=== PATIENT | female | born 1985 ===

== ENCOUNTER 2023-05-14 13:40 | Emergency (ER) | payer OTHER ==
[2023-05-14 14:59] LABS: APPEARANCE,URINE CLEAR; BILIRUBIN,URINE NEGATIVE (NEGATIVE); COLOR,URINE YELLOW; GLUCOSE,URINE NEGATIVE (NEGATIVE); KETONES,URINE NEGATIVE (NEGATIVE); LEUKOCYTE ESTERASE,URINE NEGATIVE (NEGATIVE); NITRITE,URINE NEGATIVE (NEGATIVE); OCCULT BLOOD,URINE NEGATIVE (NEGATIVE); PH,URINE 6.5 (5.0-8.0); PROTEIN,URINE NEGATIVE (NEGATIVE); UROBILINOGEN,URINE 0.2 EU/dL (<2.0)
== END 2023-05-14 15:50 | disposition home or self-care (01) ==
LOC: MW.ED 13:40
DX: O99.891 Other specified diseases and conditions complicating pregnancy (principal); R30.0 Dysuria; Z3A.00 Weeks of gestation of pregnancy not specified
CPT/HCPCS: 81003; 99283

== ENCOUNTER 2023-10-31 16:00 | Inpatient (IN) | payer BC, OTHER ==
[2023-10-31] MEDS ORDERED: Sodium Chloride 0.9% 2.5 ML Syringe FLUSH PRN ×2 (16:13→18:49)
[2023-10-31] MEDS ORDERED: Misoprostol 200 MCG Tab RECTAL PRN (16:13)
[2023-10-31] MEDS ORDERED: ceFAZolin 1 GM in Sodium Chloride 0.9% 50 ML IV ONE (16:13)
[2023-10-31] MEDS ORDERED: Citric Acid/Sodium Citrate Solution 30 ML Cup PO ONE (16:13)
[2023-10-31] MEDS ORDERED: Sodium Chloride 0.9% 10 ML Syringe FLUSH PRN ×2 (16:13→18:49)
[2023-10-31] MEDS ORDERED: Sodium Chloride 0.9% 20 ML SDV IV PRN (16:13)
[2023-10-31] MEDS ORDERED: Oxytocin/0.9 % Sodium Chloride 30 UNIT/500 ML BAG IV SCH (16:15)
[2023-10-31] MEDS ORDERED: fentaNYL 100 MCG/2 ML SDV ONE (16:19)
[2023-10-31] MEDS ORDERED: Morphine PF 10 MG/10 ML SDV ONE (16:19)
[2023-10-31] MEDS ORDERED: Oxytocin 10 Units/1 ML SDV ONE (16:23)
[2023-10-31] MEDS ORDERED: Tranexamic Acid 1,000 MG/10 ML Vial ONE (16:23)
[2023-10-31] MEDS ORDERED: Ondansetron 4 MG/2 ML SDV ONE ×2 (16:23→16:58)
[2023-10-31] MEDS ORDERED: Dexamethasone 4 MG/ML 5 ML MDV ONE (16:23)
[2023-10-31] MEDS ORDERED: Ropivacaine 0.5% 5 MG/ML 30 ML SDV ONE (16:23)
[2023-10-31] MEDS ORDERED: Phenylephrine HCl In 0.9% NaCl 1 MG/10 ML Syringe ONE ×3 (16:23→17:23)
[2023-10-31] MEDS ORDERED: ceFAZolin 2 GM Vial ONE (16:24)
[2023-10-31] MEDS ORDERED: dexmedeTOMIDine HCl 200 MCG/2 ML SDV ONE (16:25)
[2023-10-31] MEDS ORDERED: Calcium Chloride 10% 1 GM/10 ML Syringe ONE (16:28)
[2023-10-31] MEDS ORDERED: droPERidol 5 MG/2 ML SDV ONE (16:32)
[2023-10-31 16:38] LABS: HEMATOCRIT 33.4 % (37.0-47.0); HEMOGLOBIN 11.4 g/dL (12.0-16.0); MEAN CORPUSCULAR HEMOGLOBIN 30.3 pg (28.0-32.0); MEAN CORPUSCULAR HGB CONC 34.1 g/dL (32.0-36.0); MEAN CORPUSCULAR VOLUME 88.8 fL (83.0-99.0); PLATELET COUNT,PLT 260 K/uL (150-400); RED BLOOD CELL COUNT 3.76 M/uL (4.10-5.30); WHITE BLOOD CELL COUNT,WBC 13.69 K/uL (3.9-11.3)
[2023-10-31] MEDS ORDERED: Azithromycin 500 MG Vial ONE (16:52)
[2023-10-31] MEDS ORDERED: HYDROmorphone 1 MG/ML Syringe IVPUSH PRN (18:12)
[2023-10-31] MEDS ORDERED: ePHEDrine 50 MG/ML SDV IVPUSH PRN (18:12)
[2023-10-31] MEDS ORDERED: Albuterol 0.083% 2.5 MG/3 ML Neb Soln NEB PRN (18:12)
[2023-10-31] MEDS ORDERED: fentaNYL 50 MCG/ML SDV IVPUSH PRN ×2 (18:12→18:18)
[2023-10-31] MEDS ORDERED: Acetaminophen/oxyCODONE 325-5 MG Tab PO PRN (18:12)
[2023-10-31] MEDS ORDERED: Metoclopramide 10 MG/2 ML SDV IVPUSH PRN (18:12)
[2023-10-31] MEDS ORDERED: droPERidol 5 MG/2 ML SDV IVPUSH PRN (18:12)
[2023-10-31] MEDS ORDERED: diphenhydrAMINE 50 MG/ML SDV IVPUSH PRN (18:12)
[2023-10-31] MEDS ORDERED: Naloxone 0.4 MG/ML SDV IVPUSH PRN (18:12)
[2023-10-31] MEDS ORDERED: fentaNYL 100 MCG/2 ML SDV IVPUSH PRN (18:12)
[2023-10-31] MEDS ORDERED: Ondansetron 4 MG/2 ML SDV IVPUSH PRN ×2 (18:12)
[2023-10-31] MEDS ORDERED: Morphine 2 MG/ML SYRINGE IVPUSH PRN (18:12)
[2023-10-31] MEDS ORDERED: Measles, Mumps & Rubella Vaccine 0.5 ML SDV SUBCUT ONE (18:49)
[2023-10-31] MEDS: Lactated Ringers 1,000 ML IV SCH (19:33)
[2023-10-31] MEDS: Ketorolac 30 MG/ML SDV IVPUSH SCH (19:34)
[2023-10-31] MEDS: Acetaminophen 1,000 MG in Premix Bag 1 BAG IV SCH (19:46)
[2023-10-31] MEDS: Docusate Sodium 100 MG Cap PO SCH (22:52)
[2023-11-01 06:17] LABS: BASOPHILS ABSOLUTE AUTO 0.03 K/uL (0.00-0.20); BASOPHILS PERCENT AUTO 0.1 % (0.0-1.0); EOSINOPHILS ABSOLUTE AUTO 0.01 K/uL (0.00-0.45); HEMATOCRIT 30.9 % (37.0-47.0); HEMOGLOBIN 10.4 g/dL (12.0-16.0); IMMATURE GRAN ABSOLUTE AUTO 0.42 K/uL (0.00-0.05); IMMATURE GRAN PERCENT AUTO 1.9 % (0.0-0.4); LYMPHOCYTES PERCENT AUTO 8.5 % (24.0-44.0); MEAN CORPUSCULAR HEMOGLOBIN 30.7 pg (28.0-32.0); MEAN CORPUSCULAR HGB CONC 33.7 g/dL (32.0-36.0); MEAN CORPUSCULAR VOLUME 91.2 fL (83.0-99.0); MEAN PLATELET VOLUME 9.7 fL (9.4-12.3); MONOCYTES ABSOLUTE AUTO 1.21 K/uL (0.00-0.80); MONOCYTES PERCENT AUTO 5.4 % (0.0-8.0); NEUTROPHILS ABSOLUTE AUTO 18.72 K/uL (1.80-7.70); NEUTROPHILS PERCENT AUTO 84.1 % (41.0-71.0); PLATELET COUNT,PLT 254 K/uL (150-400); RED BLOOD CELL COUNT 3.39 M/uL (4.10-5.30); WHITE BLOOD CELL COUNT,WBC 22.29 K/uL (3.9-11.3)
[2023-11-01] MEDS: Ibuprofen 800 MG Tab PO ONE (21:08)
[2023-11-02] MEDS: Acetaminophen 500 MG Tab PO SCH (01:55)
[2023-11-02] MEDS: Ibuprofen 800 MG Tab PO SCH (04:15)
[2023-11-03] MEDS: Ibuprofen 800 MG Tab PO PRN (21:16)
[2023-11-03] MEDS: Acetaminophen 500 MG Tab PO PRN (22:59)
== END 2023-11-03 23:40 | disposition home or self-care (01) | DRG 540 ==
LOC: MW.OBCHECK 16:00 → MW.OB 16:01 → MW.OBCHECK 16:12 → OBSVTOIN 16:13 → MW.OB 20:14
PROVIDERS: ADMIT Obstetrics & Gynecology; ATTEND Obstetrics & Gynecology Obstetrics
PROC: 10D00Z1 Extraction of Products of Conception, Low, Open Approach (ICD-10-PCS; principal; 2023-10-31 16:45)
DX: O44.13 Complete placenta previa with hemorrhage, third trimester (principal); Z3A.37 37 weeks gestation of pregnancy; Z37.0 Single live birth; O62.1 Secondary uterine inertia
CPT/HCPCS: 01961; 36415; 59025; 64488; 85025; 85027; 86592; 86850; 86900; 86901; 86920; A9270-GY; J0131; J0456; J0690; J1100; J1790; J1885; J2274; J2371; J2405; J2590; J2795; J3010; J3490; J7120